=== PATIENT | male | born 1990 | race Caucasian/White ===

== ENCOUNTER 2024-04-15 06:42 | Day surgery (SDC) | payer OTHER, SELFPAY ==
[2024-04-15] VITALS (7 sets, daily range): BP systolic 95–136; BP diastolic 62–78; PULSE 60–72; RESP 14–18; TEMP 36–36.1; O2SAT 97–100; BMI 31.5
--- NOTE | 2024-04-15 07:07 | PRE.ANES_ITS ---
ASA Classification* ASA Classification ASA Classification: 2 Assessment & Plan Anesthesia* Anesthesia Assessment Anesthesia Assessment: Discussed sedation and/or anesthesia options, risks, benefits, and alternatives with patient/parents/legal guardian/POA. Questions invited. The patient/parents/legal guardian/POA seems to understand and agrees to proceed with anesthesia plan. Reviewed the physical assessment, medical history, allergy history and patient home medications list prior to surgery/procedure/anesthetic and documented any changes. Performed airway and anesthesia risk assessments. 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 When Was Last Pacemaker Check QUESTION #4 FULL TEXT: You/Your Family Experience fever (hyperthermia) with Anesthesia Last Oral Intake Last Oral intake: Last Oral Intake NPO since 00:00 04/15/24 06:55 Meds taken in AM with sips of No 04/15/24 06:55 water? Meds patient instructed to take am of surgery PONV PONV - auto service advisor: PONV - auto service advisor Female No 04/13/24 11:54 HX of Motion Sickness Yes 04/13/24 11:54 HX of N/V After Surgery No 04/13/24 11:54 Non-Smoker No 04/13/24 11:54 Duration of Surgery greater No 04/13/24 11:54 than 60 minutes Number of Risk Factors 1 04/13/24 11:54 PONV Score Low Risk 04/13/24 11:54 Height & Weight Height & Weight: Anesthesia: Height & Weight Height 5 ft 8 in 04/15/24 06:55 Weight: 94 kg 04/15/24 06:55 Body Mass Index (BMI) 31.5 04/15/24 06:55 Respiratory Assessment Respiratory Assessment - auto service advisor: Respiratory Tract Infection Hx - auto service advisor Hx Respiratory Tract Infection No 04/13/24 11:54 STOP Sleep Apnea STOP Sleep Apnea - auto service advisor: STOP Sleep Apnea - auto service advisor Hx Hypertension No 04/13/24 11:54 Hx Sleep Apnea No 04/13/24 11:54 CPAP BIPAP Do you snore loudly (louder No 04/13/24 11:54 than talking or can be heard Do you often feel tired/ No 04/13/24 11:54 fatigued/ sleepy during daytime? Has anyone observed you stop No 04/13/24 11:54 breathing during sleep? STOP Results Negative 04/13/24 11:54 QUESTION #5 FULL TEXT : Do you snore loudly (louder than talking or can be heard through closed doors)? 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 Specify any problems Hx of Preganancy in last 3 N/A 04/13/24 11:54 Months Nurse Filling Out Transfusion VCHRISTIN 04/13/24 11:54 & Questions: Date: 04/13/24 04/13/24 11:54 Time: 11:55 04/13/24 11:54 Patient unable to answer at this time (ie. confused, unrespo /Reproduction History /Reproductive History - auto service advisor: /Reproductive Hx- auto service advisor Hx Now Gestational Age (in weeks): EDC: Hx Hx Para Hx Section SAB PFSH Medical History Vapes nicotine containing substance External hemorrhoid Anal fissure Family history of prostate problems Kidney stones Gastrointestinal problem Hypoglycemia Back problem Home Medications ?Medication ?Instructions ?Recorded ?Last Taken ?Type NK 04/13/24 Unknown History Allergy/AdvReac Type Severity Reaction Status Date / Time No Known Allergies Allergy Verified 04/15/24 06:54 Family History Other Anxiety Arthritis CVA (cerebral vascular accident) Depression Diabetes Heart disease Hypertension Melanoma Seizures Thyroid disorder Surgical History Hx of surgical procedure Hx of colonoscopy Social History Smoking Status: Current some day smoker tobacco type: e-cigarettes alcohol intake: current details: glass of wine 2 times a month substance use type: does not use what type of physical activity do you participate in: yoga and additional details: strengthing and yard work Review of Systems (Anesthesia) ROS Narrative System reviewed and no additional complaints, except as documented.
--- NOTE | 2024-04-15 07:08 | PCM.HP.BLA ---
History and Physical Date of Admission: 04/15/24 Chief Complaint: Hx of polyps, hemmrrhoids Details: PJ FRIAS, is a 33 M who presents to the office today for establishment with [facility]. Pt has had an external hemorrhoids that has been bothersome to him for 4 years now. He underwent a colonoscopy 4 years ago and precancerous polyps were found. Since then his hemorrhoid has worsened and is often irritated. When he wipes he has bright red blood streaks. He would like to get the hemorrhoid taken care of as it is affecting his life. ROS Const Constitutional: Positive for weight change Musc Musculoskeletal: Positive for back pain, stiffness, Arthritis and sciatica Skin Skin: Positive for dry skin Endo Endocrine: Positive for weight change Exam Const General: cooperative and comfortable Nutritional Appearance: average body habitus and well nourished HENMT Head: normal to inspection Ears: hearing grossly normal bilaterally Nose: external nose normal Face and sinus: normal facial exam Mouth: oral mucosae normal Throat: posterior oropharynx normal Eyes General: appearance normal, both eyes and all related structures Neck Neck: normal visual inspection Chest Chest palpation & inspection: normal inspection of the chest Resp Effort & Inspection: normal respiratory effort Cardio Palpation: normal PMI GI Inspection: normal to inspection Skin General: no rashes or lesions noted Neuro General: patient alert Extrem General: normal to inspection Psych Affect: normal affect Assessment and Plan Assessment and Plan (1) Bleeding external hemorrhoids: Status: Acute Plan: Pt is a 33 yo male here today for establishment with [facility]. He has been struggling with a hemorrhoid for over 4 years now. It often gets irritated and will hurt and bleed. He also had precancerous polyps removed on a colonoscopy four years ago. He will have a colonoscopy to assess the hemorrhoid and check for polyps. He also has complaints of feeling like he cannot digest food well with bloating and heartburn. I will order GES. -Colonoscopy -GES (2) Colon polyps: Status: Acute I have examined the patient and the H&P has been reviewed. There are no clinical changes since date of exam.
--- NOTE | 2024-04-15 07:45 | COLBX_PTH ---
PATIENT: PJ FRIAS DEAR LOC: EN U#:[id number] AGE/SX: 33/M ROOM: RE04/15/[address]: Dr. Himanshu Johnson DO : 1990 BED: DIS: 04/15/2024 SPEC #: [id number] RECD: 04/15/24 09:21 STATUS: NOEMI REBebo #: [id number] SUSHIL: 04/15/24 07:[address]: Himanshu Johnson DEPT: SURGICAL PATHOLOGY RECD BY: Jay Woods ENTERED: 04/15/24 11:27 SP TYPE: COLON BX OTHR DR: Edwige Primary Care Phys Tissues: A - Ileum, NOS B - COLON BIOPSY C - Transverse colon D - Rectum, NOS Procedures: Surgery Specimen Level IV HEADER OPERATION: Colonoscopy with polypectomy, banding and biopsy PRE-OP DIAGNOSIS: Bleeding external hemorrhoids, colon polyps TISSUE SUBMITTED: A- Terminal ileum biopsy, B- Random colon biopsy, C- Transverse colon polyp, D- Rectum biopsy MICROSCOPIC DIAGNOSIS A. Terminal ileum, biopsy: Fragments of small intestinal mucosa, no pathologic diagnosis. B. Colon, random biopsy: Fragments of colonic mucosa, no pathologic diagnosis. C. Transverse colon polyp, polypectomy: Fragments of tubular adenoma. D. Rectum, biopsy: Fragments of colonic mucosa, no pathologic diagnosis. 04/16/2024 MICROSCOPIC DESCRIPTION Slides are reviewed. GROSS DESCRIPTION A. Received in fixative is one container labeled with the patient's name and designated Terminal ileum biopsy. The specimen consists of multiple irregular fragments of light vasquez soft tissue that in aggregate measure 0.3 x 0.3 x 0.1 cm. The specimen is totally submitted in one cassette. B. Received in fixative is one container labeled with the patient's name and designated Random colon biopsy. The specimen consists of multiple irregular fragments of light vasquez soft tissue that in aggregate measure 1.5 x 0.6 x 0.1 cm. The specimen is totally submitted in one cassette. C. Received in fixative is one container labeled with the patient's name and designated Transverse colon polyp. The specimen consists of multiple irregular fragments of light vasquez soft tissue that in aggregate measure 1.2 x 0.3 x 0.1 cm. The specimen is totally submitted in one cassette. D. Received in fixative is one container labeled with the patient's name and designated Rectum biopsy. The specimen consists of two irregular fragments of light vasquez soft tissue that in aggregate measure 0.6 x 0.3 x 0.1 cm. The specimen is totally submitted in one cassette. SJ.mr 04/15/2024 TC:1 CPT:75170o2
--- NOTE | 2024-04-15 07:57 | PCM.POST.ANE ---
Anesthesia: Postop Eval I Current Vital Signs Temperature: 97 F Pulse Rate: 62 Blood Pressure: 95/62 Respiratory Rate: 14 Pulse Ox: 97 Oxygen Delivery Method: Room Air Assessment Airway patent: Yes Spontaneous unlabored respirations: Yes Mental status: Asleep nausea: No Vomiting: No Anesthesia Complication: No Fluid Hydration Crystalloid volume administer (ml): 70 Total IV fluid infused: 70 Progress Note Anesthesia document: Postop Eval 1 completed: Yes
--- NOTE | 2024-04-15 07:59 | OP.COLON_ITS ---
Patient Name: Jan Steinberg Procedure Date: 04/15/2024 7:14 AM Date of : 1990 Age: 33 Procedure: Colonoscopy Indications: Hematochezia, Follow-up for history of adenomatous polyps in the colon Providers: Himanshu Johnson DO Referring MD: Himanshu Johnson DO Medicines: Monitored Anesthesia Care Patient Profile: This is a 33 year old male. Refer to note in patient chart for documentation of history and physical. Last Colonoscopy: several years ago. Complications: No immediate complications. Procedure: Pre-Anesthesia Assessment: - Prior to the procedure, a History and Physical was performed, and patient medications and allergies were reviewed. The patient is competent. The risks and benefits of the procedure and the sedation options and risks were discussed with the patient. All questions were answered and informed consent was obtained. Patient identification and proposed procedure were verified by the physician in the pre-procedure area. Mental Status Examination: alert and oriented. Airway Examination: normal oropharyngeal airway and neck mobility. Respiratory Examination: clear to auscultation. CV Examination: normal. Prophylactic Antibiotics: The patient does not require prophylactic antibiotics. Prior Anticoagulants: The patient has taken no anticoagulant or antiplatelet agents except for NSAID medication. ASA Grade Assessment: II - A patient with mild systemic disease. After reviewing the risks and benefits, the patient was deemed in satisfactory condition to undergo the procedure. The anesthesia plan was to use monitored anesthesia care (MAC). Immediately prior to administration of medications, the patient was re-assessed for adequacy to receive sedatives. The heart rate, respiratory rate, oxygen saturations, blood pressure, adequacy of pulmonary ventilation, and response to care were monitored throughout the procedure. The physical status of the patient was re-assessed after the procedure. After I obtained informed consent, the scope was passed under direct vision. Throughout the procedure, the patient's blood pressure, pulse, and oxygen saturations were monitored continuously. The pediatric colonoscope was introduced through the anus and advanced to the terminal ileum. The colonoscopy was performed without difficulty. The patient tolerated the procedure well. The quality of the bowel preparation was adequate. The terminal ileum, ileocecal valve, appendiceal orifice, and rectum were photographed. Scope In: 7:22:31 AM Scope Withdrawal Time 0 hours 20 minutes 51 seconds Scope Out: 7:47:10 AM Total Procedure Duration Time 0 hours 24 minutes 39 seconds Findings: Hemorrhoids were found on perianal exam. An 8 mm polyp was found in the transverse colon. The polyp was sessile. The polyp was removed with a hot snare. Resection and retrieval were complete. Verification of patient identification for the specimen was done. Estimated blood loss was minimal. A 3 mm polyp was found in the transverse colon. The polyp was sessile. The polyp was removed with a jumbo cold forceps. Resection and retrieval were complete. Verification of patient identification for the specimen was done. Estimated blood loss was minimal. An area of mildly congested mucosa was found in the entire colon. Biopsies were taken with a cold forceps for histology. Verification of patient identification for the specimen was done. Estimated blood loss was minimal. The terminal ileum appeared normal. Biopsies were taken with a cold forceps for histology. Verification of patient identification for the specimen was done. Estimated blood loss was minimal. Non-bleeding external and internal hemorrhoids were found during retroflexion. The hemorrhoids were Grade II (internal hemorrhoids that prolapse but reduce spontaneously). A hemorrhoid was isolated with anoscopy. The ShortShot ligator was positioned over the hemorrhoid at the left lateral position. Suction was applied and one rubber band was placed over the hemorrhoid. This was checked to make certain that the muscularis was free of the band. There were no complications. Impression: - Hemorrhoids found on perianal exam. - One 8 mm polyp in the transverse colon, removed with a hot snare. Resected and retrieved. - One 3 mm polyp in the transverse colon, removed with a jumbo cold forceps. Resected and retrieved. - Congested mucosa in the entire examined colon. Biopsied. - The examined portion of the ileum was normal. Biopsied. - Non-bleeding external and internal hemorrhoids. Banded. Recommendation: - Repeat colonoscopy in 5 years for surveillance. - Surgical removal of external hemorrhoid - Continue present medications. Procedure Code(s): --- Professional --- 99918, Colonoscopy, flexible; with removal of tumor(s), polyp(s), or other lesion(s) by snare technique 41078, Colonoscopy, flexible; with band ligation(s) (eg, hemorrhoids) 53974, 59, Colonoscopy, flexible; with biopsy, single or multiple CPT copyright 2021 [employer]. All rights reserved. The codes documented in this report are preliminary and upon physician coder review may be revised to meet current compliance requirements. Himanshu Johnson DO 04/15/2024 7:59:03 AM This report has been signed electronically. Number of Addenda: 0 Note Initiated On: 04/15/2024 7:14 AM
--- NOTE | 2024-04-15 07:59 | OP.CCLET_ITS ---
04/15/2024 No Primary Care Physician Re : Colonoscopy procedure for Jan Steinberg Dear Care Physician This procedure was performed on Monday, April 15, 2024. My impressions and recommendations are as follows: Impressions : - Hemorrhoids found on perianal exam. - One 8 mm polyp in the transverse colon, removed with a hot snare. Resected and retrieved. - One 3 mm polyp in the transverse colon, removed with a jumbo cold forceps. Resected and retrieved. - Congested mucosa in the entire examined colon. Biopsied. - The examined portion of the ileum was normal. Biopsied. - Non-bleeding external and internal hemorrhoids. Banded. Recommendations : - Repeat colonoscopy in 5 years for surveillance. - Surgical removal of external hemorrhoid - Continue present medications. My findings are described in the full procedure note, which is enclosed. If I can be of further assistance, please feel free to contact me at . Sincerely, Himanshu Johnson, 04/15/2024 7:59:03 AM This report has been signed electronically.
--- NOTE | 2024-04-15 08:25 | PCM.POSTANE2 ---
Anesthesia Postop Eval I Sum Postop Eval Completion status Anesthesia document: Postop Eval 1 completed: Yes Anesthesia Postop Eval I Summary Anesthesia Postop Eval I Summary: Anesthesia Postop Eval I: Assessment Summary Airway patent Yes 04/15/24 07:57 [email or web address] Spontaneous unlabored Yes 04/15/24 07:57 [email or web address] respirations Mental status Asleep 04/15/24 07:57 [email or web address] nausea No 04/15/24 07:57 [email or web address] Vomiting No 04/15/24 07:57 [email or web address] Anesthesia Postop Eval I: Fluid Summary Crystalloid volume administer 70 04/15/24 07:57 [email or web address] (ml) Colloids volume administered ( ml) Blood Product volume administered (ml) Total IV fluid infused 70 04/15/24 07:57 [email or web address] Anesthesia Postop Eval I: Summary Notes Anesthesia Complication No 04/15/24 07:57 [email or web address] Anesthesia Complication Comment: Post-operative progress note Anesthesia: Postop Eval II Evaluation Mental status: Awake Pain Level: 0 nausea: No Vomiting: No
== END 2024-04-15 08:35 | disposition home or self-care (01) ==
LOC: EN 06:45 → AC 06:48
PROVIDERS: Visit Provider Internal Medicine Gastroenterology
PROC: 0DJD8ZZ Inspection of Lower Intestinal Tract, Via Natural or Artificial Opening Endoscopic (ICD-10-PCS; CPT 45378; principal; 2024-04-15 07:40)
DX: D12.3 Benign neoplasm of transverse colon (principal); K64.4 Residual hemorrhoidal skin tags; K64.1 Second degree hemorrhoids; Z86.0101 Personal history of adenomatous and serrated colon polyps
CPT/HCPCS: 45385; 45380; 46221; 88305; A4216; J2405

== ENCOUNTER 2024-06-09 10:24 | Day surgery (SDC) | payer OTHER, SELFPAY ==
[2024-06-09] VITALS (9 sets, daily range): BP systolic 122–159; BP diastolic 73–84; PULSE 66–111; RESP 16–22; TEMP 36.1–36.9; O2SAT 96–100; BMI 32.5
[2024-06-09] MEDS: 0.9% Normal Saline (1000mL) 1,000 ML 15 ML IV (11:11)
--- NOTE | 2024-06-09 11:57 | PCM.PRE.AN2 ---
ASA Classification* ASA Classification ASA Classification: 2 Assessment & Plan Anesthesia* Anesthesia Assessment Anesthesia Assessment: Discussed sedation and/or anesthesia options, risks, benefits, and alternatives with patient/parents/legal guardian/POA. Questions invited. The patient/parents/legal guardian/POA seems to understand and agrees to proceed with anesthesia plan. Reviewed the physical assessment, medical history, allergy history and patient home medications list prior to surgery/procedure/anesthetic and documented any changes. Performed airway and anesthesia risk assessments. 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 When Was Last Pacemaker Check QUESTION #4 FULL TEXT: You/Your Family Experience fever (hyperthermia) with Anesthesia Last Oral Intake Last Oral intake: Last Oral Intake NPO since 23:30 06/09/24 10:51 Meds taken in AM with sips of No 06/09/24 10:51 water? Meds patient instructed to take am of surgery PONV PONV - business development executive: PONV - business development executive Female No 05/25/24 08:54 HX of Motion Sickness No 05/25/24 08:54 HX of N/V After Surgery No 05/25/24 08:54 Non-Smoker No 05/25/24 08:54 Duration of Surgery greater No 05/25/24 08:54 than 60 minutes Number of Risk Factors PONV Score Height & Weight Height & Weight: Anesthesia: Height & Weight Height 5 ft 8 in 06/09/24 10:51 Weight: 97 kg 06/09/24 10:51 Body Mass Index (BMI) 32.5 06/09/24 10:51 Respiratory Assessment Respiratory Assessment - business development executive: Respiratory Tract Infection Hx - business development executive Hx Respiratory Tract Infection No 05/25/24 08:54 Any additional information?: Yes Hx Respiratory Tract Infection: Yes (Patient had the flu about 2 weeks ago. Completely recovered at this time.) STOP Sleep Apnea STOP Sleep Apnea - business development executive: STOP Sleep Apnea - business development executive Hx Hypertension No 05/25/24 08:54 Hx Sleep Apnea No 05/25/24 08:54 CPAP BIPAP Do you snore loudly (louder No 05/25/24 08:54 than talking or can be heard Do you often feel tired/ No 05/25/24 08:54 fatigued/ sleepy during daytime? Has anyone observed you stop No 05/25/24 08:54 breathing during sleep? STOP Results Negative 05/25/24 08:54 QUESTION #5 FULL TEXT : Do you snore loudly (louder than talking or can be heard through closed doors)? 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 Specify any problems Hx of Preganancy in last 3 N/A 05/25/24 08:54 Months Nurse Filling Out Transfusion VCHRISTIN 05/25/24 08:54 & Questions: Date: 05/25/24 05/25/24 08:54 Time: 08:55 05/25/24 08:54 Patient unable to answer at this time (ie. confused, unrespo /Reproduction History /Reproductive History - business development executive: /Reproductive Hx- business development executive Hx Now Gestational Age (in weeks): EDC: Hx Hx Para Hx Section SAB Active Medications Active Medications: Current Medications Generic Name Dose Route Start Last Admin Trade Name Freq PRN Reason Stop Dose Admin Sodium Chloride 1,000 mls @ 15 mls/hr 06/09/24 11:10 06/09/24 11:11 IV 06/15/24 00:29 15 mls/hr .Q48H ELIEL Administration Protocol REPLACED BY [facility] Medical History Vapes nicotine containing substance External hemorrhoid Anal fissure Family history of prostate problems Kidney stones Gastrointestinal problem Hypoglycemia Back problem Home Medications ?Medication ?Instructions ?Recorded ?Last Taken ?Type NK 04/13/24 Unknown History Allergy/AdvReac Type Severity Reaction Status Date / Time No Known Allergies Allergy Verified 06/09/24 10:59 Family History Other Anxiety Arthritis CVA (cerebral vascular accident) Depression Diabetes Heart disease Hypertension Melanoma Seizures Thyroid disorder Surgical History Hx of surgical procedure Hx of colonoscopy Social History Smoking Status: Current some day smoker tobacco type: e-cigarettes alcohol intake: current details: glass of wine 2 times a month substance use type: does not use what type of physical activity do you participate in: yoga and additional details: strengthing and yard work Review of Systems (Anesthesia) ROS Narrative System reviewed and no additional complaints, except as documented.
--- NOTE | 2024-06-09 12:00 | PCM.HP.STD ---
HPI - General General Date of Admission: 06/09/24 Date of Service: 06/09/24 Chief Complaint: Symptomatic hemorrhoids HPI Narrative PJ FRIAS, is a 34 M who presents for elective hemorrhoid surgery. Patient was seen recently in the office and I offered him a Doppler hemorrhoid ligation surgery as well as excision of external hemorrhoids. We discussed the details of the planned procedure including risk benefits and alternatives. He wished to proceed. [facility] Medical History Vapes nicotine containing substance External hemorrhoid Anal fissure Family history of prostate problems Kidney stones Gastrointestinal problem Hypoglycemia Back problem Home Medications ?Medication ?Instructions ?Recorded ?Last Taken ?Type NK 04/13/24 Unknown History Allergy/AdvReac Type Severity Reaction Status Date / Time No Known Allergies Allergy Verified 06/09/24 10:59 Family History Other Anxiety Arthritis CVA (cerebral vascular accident) Depression Diabetes Heart disease Hypertension Melanoma Seizures Thyroid disorder Surgical History Hx of surgical procedure Hx of colonoscopy Social History Smoking Status: Current some day smoker tobacco type: e-cigarettes alcohol intake: current details: glass of wine 2 times a month substance use type: does not use what type of physical activity do you participate in: yoga and additional details: strengthing and yard work Vital Signs Vital Signs Vital Signs: 06/09/24 10:51 06/09/24 10:51 Temperature 98.5 F Temperature Source Temporal Pulse Rate 66 Respiratory Rate 16 Respiratory Pattern Normal Blood Pressure 126/78 H Blood Pressure Mean 94 Blood Pressure Source Monitor Blood Pressure Position Semi-Fowlers Blood Pressure Location Left Arm Pulse Ox 100 Oxygen Delivery Method Room Air Weight Weight: 213 lb 13.574 oz Body Mass Index (BMI) 32.5 Assessment & Plan Assessment/Plan (1) Bleeding external hemorrhoids: PLAN: Plan The patient is a 34-year-old male with symptomatic external hemorrhoids and internal hemorrhoids. I have recommended a Doppler guided hemorrhoid artery ligation surgery as well as excision of external hemorrhoids. We discussed the details of the planned procedure and he wishes to proceed. This surgery will begin once in operating room becomes available Charges/Coding Visit Charges Inpatient E&M: 45184 Init Hosp L1
--- NOTE | 2024-06-09 12:15 | HEM_PTH ---
PATIENT: PJ FRIAS DEAR LOC: [facility] [place] U#:[id number] AGE/SX: 34/M ROOM: RE06/09/[address]: Dr. Armando Mcneil MD : 1990 BED: DIS: 06/09/2024 SPEC #: [id number] RECD: 06/09/24 18:14 STATUS: NOEMI REBebo #: [id number] SUSHIL: 06/09/24 12:[address]: Armando Mcneil DEPT: SURGICAL PATHOLOGY RECD BY: Nu Alford ENTERED: 06/10/24 10:00 SP TYPE: HEMORRHOID OTHR DR: No Primary Care Phys Tissues: HEMORRHOIDS Procedures: Surgery Specimen Level III HEADER OPERATION: Excision external hemorrhoids and THD hemorrhoidectomy PRE-OP DIAGNOSIS: Hemorrhoids TISSUE SUBMITTED: Hemorrhoids, external MICROSCOPIC DIAGNOSIS External hemorrhoid, hemorrhoidectomy: A piece of squamous mucosa with dilated and congested blood vessels, consistent with hemorrhoid. MICROSCOPIC DESCRIPTION Slides are reviewed. GROSS DESCRIPTION Received in fixative is one container labeled with the patient's name and designated Hemorrhoids, external. The specimen consists of a piece of vasquez mucosal tissue measuring 1.7 x 1.5 x 1.0cm. A few hairs are also noted. The specimen is serially sectioned and submitted entirely in one cassette. 06/10/2024 TC:5 CPT:15658
[2024-06-09] MEDS: Lubricating Jelly 60 GM Tube 30 GM (13:51)
[2024-06-09] MEDS: Bupiv/Epi 0.25% 30 ML Vial (14:13)
[2024-06-09] MEDS: Dibucaine 30 GM Tube 1 APPLIC (14:13)
[2024-06-09] MEDS: Neomycin/Bacitracin/Polymyxin Ointment 1 APPLIC (14:14)
--- NOTE | 2024-06-09 14:42 | DCINST_ITS ---
Discharge Instructions Diet Discharge Diet: Light diet - advance as tolerated Activity Discharge Activity: Return to Normal Activity, May Shower and May Take a Tub Bath May shower in (days): 1 Lifting Restrictions: none Dressing / Incision Call your doctor if your incision/area has: Sudden Increased Bleeding, Increased Pain/ Swelling and Swelling at the incision site Call your doctor if you observe: Fever of 101 or Higher Cleanse incision/area with: Soap & Water Additional Dressing/Incision Instructions:: Suggest tub soaks daily; apply antibiotic ointment and topical agent 3 times per day Follow Up Care Please Follow Up With: Armando Mcneil MD When: 2-3 weeks Test Results: Test results from this visit will be discussed in further detail at your follow- up appointment, if applicable. Discharge Plan Admission Primary Reason for Your Visit: Hemorrhoid surgery Attending Provider: Armando Mcneil Primary Care Provider: Care Physician,Edwige Primary Instructions Print Language: Kiswahili Discharge Orders/Prescriptions Prescriptions: New oxycodone-acetaminophen [Percocet] 5-325 mg tablet 1 tab PO Q8H PRN (Reason: pain) 3 Days Qty: 10 0RF No Action NK Referrals / Follow Up: Care Physician,No Primary [Primary Care Provider] - Disposition Disposition (needs filled in before D/C Order can be placed): Home, Self Care
--- NOTE | 2024-06-09 14:44 | PCM.POST.ANE ---
Anesthesia: Postop Eval I Current Vital Signs Temperature: 97.3 F Pulse Rate: 106 Blood Pressure: 149/84 Respiratory Rate: 22 Pulse Ox: 96 Oxygen Delivery Method: Nasal Cannula Oxygen Flow Rate (L/min): 4 Assessment Airway patent: Yes Spontaneous unlabored respirations: Yes Mental status: Awake nausea: No Vomiting: No Anesthesia Complication: No Fluid Hydration Crystalloid volume administer (ml): 700 Total IV fluid infused: 700 Progress Note Anesthesia document: Postop Eval 1 completed: Yes
--- NOTE | 2024-06-09 14:45 | OP.PCM_ITS ---
Problems Associated Problem List Diagnoses (1) External hemorrhoid: Multi Select Codes Digestive Digestive CPT Codes: 02685 Remove in/ex hem groups 2+ and 37720 Excision, Anus w/US guidance Operative Report (Standard) Operative Information Date of Procedure: 06/09/24 Pre-Operative Diagnosis: Symptomatic internal and external hemorrhoids Post-Operative Diagnosis: Same Surgery/Procedure Performed: 1. Doppler guided hemorrhoid artery ligation 2. Excision of external hemorrhoid residential appliance repair technician: Yes Candy Spreader: Radha Barnard Tasks completed by assistant professor of mathematics: Retracting Additional medical staff assistant?: No Type of Anesthesia: General and Local RN Documented Start/Stop Times: Operation Date: 06/09/24 12:15 Case Time Into Pre-Op 06/09/24 10:39 Anesthesia Start 06/09/24 13:34 Into Room 06/09/24 13:34 Procedure Start 06/09/24 13:51 Procedure End 06/09/24 14:30 Anesthesia End 06/09/24 14:35 Out of Room 06/09/24 14:35 Into Recovery 06/09/24 14:37 Procedure Start Time: 13:51 Procedure Stop Time: 14:35 Select all DRAINS/GRAFTS/IMPLANTS that apply: None Estimated Blood Loss: Minimal Specimen collected: Yes Description of specimen(s) removed: External hemorrhoid Description of surgery: The patient is a 34-year-old male who is recently seen through my office for bleeding hemorrhoids. He was found to have both internal and external hemorrhoids. I offered him surgery to ligate the internal hemorrhoids and excised some of the more prominent external hemorrhoids. We discussed the details of the planned procedure including the risks benefits and alternatives. He wished to proceed. He was brought to the operating room today following informed consent. He was placed supine on the operative table with arms outstretched on arm boards. General LMA anesthesia was induced. Once adequately sedated his legs were placed in a modified lithotomy position. Appropriate padding was performed to ensure no nerve irritation. The perineum was then prepped and draped in the usual sterile manner. Timeout was performed. Digital rectal exam was performed and no obvious masses were noted on exam. The Doppler probe was inserted first at the 12 o'clock position and this was rotated in a clockwise direction until the first vessel was encountered as a dopplerable signal. At this point a 2-0 Vicryl was then placed in a [id number] manner and this was tied down to effectively tie off this feeding artery. This was repeated a total of 8 times around the entire circumference of the anus such that he is plantar which of dopplerable signal was noted the 2-0 Vicryl was placed and tied down. This effectively cut off blood supply to the internal hemorrhoids. Next the external hemorrhoids were addressed by first injecting local anesthetic into the most prominent hemorrhoids. This was at the 12 o'clock position anteriorly. This grouping of hemorrhoids were then excised using a harmonic scalpel. Hemostasis was excellent. The resultant wound was then closed using running chromic suture. Next about 20 cc of local anesthetic were injected in a bilateral pudendal block manner. Next a large Gelfoam sheet was covered in antibiotic as well as Dibucaine ointment. This was inserted into the anus for both hemostatic and analgesic reasons. The patient was then awakened from anesthesia and taken to recovery in good condition. Mesh underwear was utilized as dressing along with ABDs. Surgical Findings: See operative note Complications Complications: No Admit VTE Documentation VTE Present on Admission: No VTE Mechan Device Prophylaxis: SCD's VTE Pharm Prophylaxis ordered?: No
--- NOTE | 2024-06-09 21:10 | POSTOPAN2_ITS ---
Anesthesia Postop Eval I Sum Postop Eval Completion status Anesthesia document: Postop Eval 1 completed: Yes Anesthesia Postop Eval I Summary Anesthesia Postop Eval I Summary: Anesthesia Postop Eval I: Assessment Summary Airway patent Yes 06/09/24 14:45 LIFE SCIENCES INSTRUCTOR.[email or web address] Spontaneous unlabored Yes 06/09/24 14:45 LIFE SCIENCES INSTRUCTOR.RWOO respirations Mental status Awake 06/09/24 14:45 LIFE SCIENCES INSTRUCTOR.RWOO nausea No 06/09/24 14:45 LIFE SCIENCES INSTRUCTOR.RWOO Vomiting No 06/09/24 14:45 LIFE SCIENCES INSTRUCTOR.RWOO Anesthesia Postop Eval I: Fluid Summary Crystalloid volume administer 700 06/09/24 14:45 LIFE SCIENCES INSTRUCTOR.RWOO (ml) Colloids volume administered ( ml) Blood Product volume administered (ml) Total IV fluid infused 700 06/09/24 14:45 LIFE SCIENCES INSTRUCTOR.RWOO Anesthesia Postop Eval I: Summary Notes Anesthesia Complication No 06/09/24 14:45 LIFE SCIENCES INSTRUCTOR.RWOO Anesthesia Complication Comment: Post-operative progress note Anesthesia: Postop Eval II Evaluation Mental status: Awake and Calm Pain Level: 2 nausea: No Vomiting: No Complications Anesthesia Complication: No
--- NOTE | 2024-06-09 21:10 | PCM.POSTANE2 ---
Anesthesia Postop Eval I Sum Postop Eval Completion status Anesthesia document: Postop Eval 1 completed: Yes Anesthesia Postop Eval I Summary Anesthesia Postop Eval I Summary: Anesthesia Postop Eval I: Assessment Summary Airway patent Yes 06/09/24 14:45 FURNITURE ASSEMBLER AND INSTALLER.RWOO Spontaneous unlabored Yes 06/09/24 14:45 FURNITURE ASSEMBLER AND INSTALLER.RWOO respirations Mental status Awake 06/09/24 14:45 FURNITURE ASSEMBLER AND INSTALLER.RWOO nausea No 06/09/24 14:45 FURNITURE ASSEMBLER AND INSTALLER.RWOO Vomiting No 06/09/24 14:45 FURNITURE ASSEMBLER AND INSTALLER.RWOO Anesthesia Postop Eval I: Fluid Summary Crystalloid volume administer 700 06/09/24 14:45 FURNITURE ASSEMBLER AND INSTALLER.RWOO (ml) Colloids volume administered ( ml) Blood Product volume administered (ml) Total IV fluid infused 700 06/09/24 14:45 FURNITURE ASSEMBLER AND INSTALLER.RWOO Anesthesia Postop Eval I: Summary Notes Anesthesia Complication No 06/09/24 14:45 FURNITURE ASSEMBLER AND INSTALLER.RWOO Anesthesia Complication Comment: Post-operative progress note Anesthesia: Postop Eval II Evaluation Mental status: Awake and Calm Pain Level: 2 nausea: No Vomiting: No Complications Anesthesia Complication: No
== END 2024-06-09 16:05 | disposition home or self-care (01) ==
LOC: SDC 10:25 → AC 10:28
PROVIDERS: Referring Provider Surgery; Visit Provider Surgery
PROC: (CPT 46948; principal; 2024-06-09 12:00)
DX: K64.4 Residual hemorrhoidal skin tags (principal); K64.8 Other hemorrhoids; F17.290 Nicotine dependence, other tobacco product, uncomplicated
CPT/HCPCS: 46948; 00902; 88304; J2405